=== PATIENT | male | born 1995 | race African-American/Black ===

== ENCOUNTER 2019-04-06 18:22 | Emergency (ER) | payer OTHER ==
[~2019-04-06] VITALS: Ht 185.4 cm; Wt 87.3 kg
[2019-04-06] MEDS ORDERED: MELOXICAM (MOBIC) 7.5 MG TAB PO ONE (19:45)
[2019-04-06] MEDS ORDERED: MELO15TA28 PO (19:50)
[2019-04-06 19:58] VITALS: BP 135/69
== END 2019-04-06 20:03 | disposition home or self-care (01) ==
LOC: M ED 18:22
DX: G89.29 Other chronic pain (principal); M54.9 Dorsalgia, unspecified; Z88.1 Allergy status to other antibiotic agents; Z88.2 Allergy status to sulfonamides

== ENCOUNTER 2019-07-08 19:01 | Emergency (ER) | payer OTHER ==
[~2019-07-08] VITALS: Ht 185.4 cm; Wt 84.4 kg
[~2019-07-08 19:01] MED LIST: MELO15TA28 PO
[2019-07-08] MEDS ORDERED: IRON65TA2 PO (19:11)
--- NOTE | 2019-07-08 19:50 | REP ---
Left forearm: Two views. History: Forearm swelling after blunt trauma. Findings: Two views of the left forearm demonstrate normal bones, joints and soft tissues. No evidence of fracture or subluxation is seen. Impression: No fracture noted. Electronically Signed by Bertrand Ryan MD 07/08/2019 07:54 P
[2019-07-08 20:16] VITALS: BP 131/82
== END 2019-07-08 20:20 | disposition home or self-care (01) ==
LOC: M ED 19:01
DX: S50.12XA Contusion of left forearm, initial encounter (principal); W50.0XXA Accidental hit or strike by another person, initial encounter; Y92.830 Public park as the place of occurrence of the external cause; Y93.67 Activity, basketball; Y99.9 Unspecified external cause status; Z79.899 Other long term (current) drug therapy; Z88.1 Allergy status to other antibiotic agents; Z88.8 Allergy status to other drugs, medicaments and biological substances

== ENCOUNTER → 2019-10-20 | Outpatient (REF) | payer OTHER ==
[~2019-10-20] MED LIST changes: +IRON65TA2 PO
[2019-10-20 15:07] LABS: CHLAMYDIA DNA AMPLIFICATION NEGATIVE (NEGATIVE); GC DNA AMPLIFICATION NEGATIVE (NEGATIVE)
== END ==
LOC: M SMT 13:04
PROVIDERS: ATTEND Urology
DX: R30.0 Dysuria (principal)
CPT/HCPCS: 87086; 87491; 87591; G0463

== ENCOUNTER 2019-12-14 07:55 | Emergency (ER) | payer OTHER ==
[~2019-12-14] VITALS: Ht 185.4 cm; Wt 85.9 kg
[2019-12-14 09:12] LABS: INFLUENZA A AMPLIFICATION NEGATIVE (NEGATIVE); INFLUENZA B AMPLIFICATION NEGATIVE (NEGATIVE)
[2019-12-14 09:25] VITALS: BP 133/60
== END 2019-12-14 09:30 | disposition home or self-care (01) ==
LOC: M ED 07:55
DX: J06.9 Acute upper respiratory infection, unspecified (principal); Z88.2 Allergy status to sulfonamides; Z88.1 Allergy status to other antibiotic agents